=== PATIENT | male | born 2000 | race Caucasian/White ===

== ENCOUNTER 2018-01-18 23:50 | Emergency (ER) | payer BC, SELFPAY ==
[2018-01-19] MEDS ORDERED: Lidocaine Viscous Sol 2% 15 ml UD Cup ONE
== END 2018-01-19 00:15 | disposition home or self-care (01) ==
LOC: NAV ERS 23:50
DX: T16.2XXA Foreign body in left ear, initial encounter (principal)
CPT/HCPCS: 99282